=== PATIENT | female | born 1950 | race Caucasian/White ===

== ENCOUNTER → 2023-06-27 10:40 | Outpatient (REF) | payer OTHER, SELFPAY | LOC: RAD 10:40 | PROVIDERS: ATTENDING PHYSICIAN Physician Assistant Medical | DX: M25.562 Pain in left knee (principal) | CPT/HCPCS: 73564 ==

== ENCOUNTER → 2023-09-12 09:37 | Outpatient (REF) | payer OTHER, SELFPAY | LOC: RCS 09:37 | PROVIDERS: ATTENDING PHYSICIAN Internal Medicine Cardiovascular Disease; FAMILY PHYSICIAN Physician Assistant Medical | DX: I42.1 Obstructive hypertrophic cardiomyopathy (principal); I10 Essential (primary) hypertension; E78.00 Pure hypercholesterolemia, unspecified; R07.89 Other chest pain | CPT/HCPCS: 93306 ==

== ENCOUNTER → 2024-01-04 11:11 | Outpatient (REF) | payer OTHER, SELFPAY | LOC: HWWDC 11:11 | PROVIDERS: ATTENDING PHYSICIAN Physician Assistant Medical | DX: Z12.31 Encounter for screening mammogram for malignant neoplasm of breast (principal) | CPT/HCPCS: 77063; 77067 ==

== ENCOUNTER → 2024-03-18 16:08 | Outpatient (REF) | payer OTHER, SELFPAY | LOC: RAD 16:08 | PROVIDERS: ATTENDING PHYSICIAN Physician Assistant Medical | DX: M25.561 Pain in right knee (principal); R29.898 Other symptoms and signs involving the musculoskeletal system | CPT/HCPCS: 73564; 93971 ==

== ENCOUNTER → 2024-10-09 12:49 | Outpatient (REF) | payer OTHER, SELFPAY | LOC: RCS 12:49 | PROVIDERS: ATTENDING PHYSICIAN Nurse Practitioner; FAMILY PHYSICIAN Physician Assistant Medical | DX: I42.1 Obstructive hypertrophic cardiomyopathy (principal) | CPT/HCPCS: 93306 ==

== ENCOUNTER → 2024-11-11 07:55 | Outpatient (REF) | payer OTHER, SELFPAY | LOC: RCS 07:55 | PROVIDERS: ATTENDING PHYSICIAN Nurse Practitioner; FAMILY PHYSICIAN Physician Assistant Medical | DX: R07.89 Other chest pain (principal) | CPT/HCPCS: 78452; 93017; A9500; J2785 ==

== ENCOUNTER → 2024-11-18 10:19 | Outpatient (REF) | payer OTHER, SELFPAY | LOC: RCS 10:19 | PROVIDERS: ATTENDING PHYSICIAN Internal Medicine Cardiovascular Disease; FAMILY PHYSICIAN Physician Assistant Medical | DX: I42.1 Obstructive hypertrophic cardiomyopathy (principal) | CPT/HCPCS: 93308; 93321; 93325 ==

== ENCOUNTER → 2024-11-24 12:05 | Outpatient (REF) | payer OTHER, SELFPAY | LOC: RAD 12:05 | PROVIDERS: ATTENDING PHYSICIAN Dermatology; FAMILY PHYSICIAN Physician Assistant Medical | DX: Z85.820 Personal history of malignant melanoma of skin (principal) | CPT/HCPCS: 71046 ==

== ENCOUNTER → 2025-02-03 14:12 | Outpatient (REF) | payer OTHER, SELFPAY | LOC: RAD 14:12 | PROVIDERS: ATTENDING PHYSICIAN Physician Assistant Medical | DX: Z01.89 Encounter for other specified special examinations (principal); M54.6 Pain in thoracic spine; M54.50 Low back pain, unspecified | CPT/HCPCS: 72072; 72110 ==

== ENCOUNTER 2025-02-16 12:25 | Emergency (ER) | payer OTHER, SELFPAY ==
[2025-02-16 12:27] VITALS: BP 193/98
[2025-02-16 14:16] VITALS: BP 189/100
--- NOTE | 2025-02-16 14:33 | ED.GENMED ---
History of Present Illness
General
Chief Complaint: Back Pain
Time Seen by Provider: 02/16/25 14:33
History of Present Illness
History of Present Illness:
FOCUSED PAST MEDICAL HISTORY
- Cardiomyopathy, high blood pressure, anxiety
REVIEW OF OLD RECORDS
- The patient was seen here in 2020 with chest pain in the emergency department
Note:
CHIEF COMPLAINT(S)
Back pain and urinary incontinence.
HISTORY OF PRESENT ILLNESS
The patient is a 74-year-old female who presented with complaints of back pain and urinary incontinence. The back pain began approximately two weeks ago. Prior to this, the patient had no significant issues with her back other than a history of T5
and T11 compression fractures three years ago. These fractures occurred after lifting a heavy suitcase and resolved without surgical intervention. The patient reports that the current back pain started as a mild discomfort and progressed, becoming
more severe upon certain movements. She describes the pain as significant, rating it as a five out of ten at rest and potentially increasing to a nine if she moves the wrong way. The patient is capable of walking but experiences considerable
discomfort.
The previous night, the patient experienced urinary incontinence, urinating while trying to get to the bathroom. This episode prompted her PA to contact the [facility] due to concerns about possible Cauda Equina Syndrome. The patient reports
wearing pull-ups today due to continued urinary control issues.
Upon physical examination in the ER, her strength is noted to be good. The patient has been tapering off prednisone prescribed ten days ago and is currently on two tablets a day, reducing to one tablet within the next few days. Muscle relaxants have
been completed. She inquires about pain management options to address her symptoms after the current medication regimen ends.
PAST MEDICAL AND SURGICAL HISTORY
T5 and T11 compression fractures three years ago, no surgical intervention.
REVIEW OF SYSTEMS
- Gastrointestinal: Urinary incontinence began approximately the previous night.
- Musculoskeletal: Severe back pain initially rated at five out of ten, worsening to nine with certain movements. Prior history of compression fractures at T5 and T11.
PHYSICAL EXAM
General: Alert, smiling, appears fairly comfortable
Skin: Warm, dry.
Head: Normocephalic, atraumatic.
Neck: Supple, trachea midline.
Eye, ears, nose, mouth, and throat: Oral mucosa moist.
Cardiovascular: Normal peripheral perfusion, No edema.
Respiratory: Respirations are non-labored.
Gastrointestinal: Abdomen nondistended.
Back: Decreased active range of motion of the thoracolumbar spine due to pain. I offered and considered checking anal tone however the patient refuses stating that the patient will be in too much pain if she rolls onto her side
Musculoskeletal: Normal ROM, normal strength.
Neurological: Alert and oriented to person, place, time, and situation, No focal neurological deficit observed. There is good strength in an L5 and S1 distribution bilaterally
Psychiatric: Cooperative, appropriate mood & affect.
PLAN
1. Pursue MRI evaluation to rule out Cauda Equina Syndrome, if radiology permits.
2. Continue the tapering of prednisone as scheduled, with two tablets for the current and next day, then one tablet for Sunday and .
3. Discuss ongoing pain management options post-prednisone tapering.
DIFFERENTIAL DIAGNOSIS
The Differential Diagnosis includes, in no particular order and is not limited to:
1. Cauda Equina Syndrome
2. Lumbar Disc Herniation
3. Spinal Stenosis
4. Vertebral Fracture
5. Urinary Tract Infection
6. Degenerative Disc Disease
7. Sciatica
8. Nephrolithiasis
9. Lumbar Strain
10. Spinal Tumor
RADIOLOGY
- MRI L-spine
UPDATE
- I discussed case with Dr. Robles who is allowing us to get MRI of the L-spine today for evaluation of cauda equina syndrome.
- The patient is currently declining analgesia but states he may need something at home
SUMMARY OF ENCOUNTER
The patient, a 74-year-old female, presented to the emergency department with complaints of back pain and urinary incontinence. An MRI conducted showed old fractures of the thoracic spine and a new compression fracture at L1 with minimal
displacement. The patient appeared to manage basic activities such as urination without significant difficulty following initial supervision, although urinary incontinence prompted further investigations.
DISPOSITION
Discharge, provided post-void residual (PVR) is less than 200 mL.
ASSESSMENT
The patient presents with a new compression fracture at L1 and urinary incontinence, potentially indicative of complications like Cauda Equina Syndrome however MRI is not overly concerning for cauda equina syndrome.
PLAN
If PVR is less than 200 mL, discharge the patient with instructions to follow up with neurosurgery as an outpatient for further assessment and management of the new compression fracture.
MANAGEMENT OF THE PATIENTS CARE WAS DISCUSSED WITH
Dr. Johnson, who recommended checking the post-void residual to ensure proper bladder emptying and determining discharge based on these results.
PATIENT EDUCATION AND COUNSELING
The patient was advised on the importance of monitoring her symptoms and the need for follow-up care with neurosurgery as an outpatient.
FOLLOW-UP INSTRUCTIONS
The patient is to schedule a follow-up appointment with a neurosurgeon for further evaluation and management of her spinal condition.
MEDICAL DECISION MAKING
-Complexity of Data Reviewed: Chronic conditions affecting care include a history of previous compression fractures. Differential Diagnosis includes Cauda Equina Syndrome, Lumbar Disc Herniation, Spinal Stenosis, Vertebral Fracture, Urinary Tract
Infection, Degenerative Disc Disease, Sciatica, Nephrolithiasis, Lumbar Strain, and Spinal Tumor.
-Data:
Category 1: Clinical information from MRI indicating a new L1 compression fracture.
Category 3: Discussion with Dr. Johnson who recommended checking post-void residual.
DIAGNOSIS
- L1 Compression Fracture (ICD-10: S32.020A)
- History of Thoracic Compression Fractures (ICD-10: M48.54)
I discussed case with Dr. Johnson. The patient's postvoid residual was 100 mL and she has very good strength in the lower extremities is very comfortable in appearance. I have given her the contact information for Dr. Johnson to follow-up with as an
outpatient. Patient has not required any Flexeril over the last several days. We agreed to hold off on any further prescriptions.
Past History
Past History
ED Past Medical History: Cancer (Cervical CA), HTN and Other (Hypertrophic Cardiomyopathy)
ED Past Surgical History: Gynecological (total Hysterectomy)
Social History
Tobacco: Former smoker
Alcohol: Occasional
Personal:
Living: alone
Phy Exam
Physical Exam
Physical Exam:
See HPI
Course
Orders/Labs/Results
Orders:
Orders
02/16/25 14:45
MR Lumbar Without Contrast Urgent
Comment:
Reason For Exam: LBP w/ new urinary incontinence
Recent pill cam endoscopy?: No
Vital Signs
Initial and Last Documented VS:
Initial Vital Signs
Temp Pulse Resp BP Pulse Ox
37.0 C 66 18 193/98 96
02/16/25 12:27 02/16/25 12:27 02/16/25 12:27 02/16/25 12:27 02/16/25 12:27
Last Documented Vital Signs
Temp Pulse Resp BP Pulse Ox
37.0 C 61 13 128/88 97
02/16/25 12:27 02/16/25 15:15 02/16/25 15:15 02/16/25 15:00 02/16/25 15:15
*Pulse Oximetry
SaO2: 96
Oxygen Mode of Delivery: Room air
Patient hypoxic: no
*Critical Care Note
Total Time (30-74mins, 75-104mins- exclusive of procedures): Not Applicable
ED Attending Note
-
Portions of this chart may have been created with voice recognition software.� Occasional wrong word or��sound alike� substitutions may have occurred due to the inherent limitations of voice recognition software.
Discharge Plan
Departure
Patient Disposition: Home (Routine Discharge)
Date of Disposition: 02/16/25
Time of Disposition: 17:41
Patient with high blood pressure during this ER visit?: Yes
Discharge Problem:
Nontraumatic compression fracture of L1 vertebra
Referrals:
Osiel Hernandes PA-C [Family Provider, Family Practice]
Kavita Johnson MD [Active, Neurosurgery]
Activity Restrictions/Additional Instructions:
The MRI shows L1 compression fracture with 3.5 mm of retropulsion. The radiologist also noted a 6.5 cm cystic focus within the right lower quadrant which is incompletely visualized for which ultrasound is recommended as an outpatient. I briefly
notified the on-call [facility] doctor who wanted me to talk to a neurosurgeon. I am giving the contact information for a local neurosurgeon for you to follow-up with, Dr. Johnson.
MRI REPORT:
There is an acute compression fracture of the L1 vertebral body with associated moderate loss of height and 3.5 mm of retropulsion superiorly. There is associated mild canal stenosis at the L1 level.
Multilevel degenerative changes with resultant mild canal stenosis and mild bilateral neural foraminal narrowing of L4-L5.
Chronic compression fracture of the T11 vertebral body.
6.5 cm cystic focus within the right lower quadrant which is incompletely evaluated on this examination. Further evaluation with dedicated pelvic ultrasound or CT should be considered if not previously evaluated.
Interventions
Interventions:
*Risk Screen - Suicide Last Done: 02/16/25 14:21
*General Assessment Last Done: 02/16/25 12:27
*Neglect/Abuse Screening Last Done: 02/16/25 14:21
*ED- Fall Risk Assessment Last Done: 02/16/25 14:21
*ED COVID-19 Vaccine History Last Done: 02/16/25 14:21
*ED Influenza Vaccine History Last Done: 02/16/25 14:21
ED-Musculoskeletal Assessment Last Done: 02/16/25 14:21
Discharge Date and Time
Print Language: NAURUAN
[2025-02-16 15:00] VITALS: BP 128/88
== END 2025-02-16 18:11 | disposition home or self-care (01) ==
LOC: EMR 12:25
PROVIDERS: EMERGENCY PHYSICIAN Emergency Medicine; FAMILY PHYSICIAN Physician Assistant Medical
DX: M48.56XA Collapsed vertebra, not elsewhere classified, lumbar region, initial encounter for fracture (principal); I10 Essential (primary) hypertension; I42.2 Other hypertrophic cardiomyopathy; R32 Unspecified urinary incontinence; Z85.41 Personal history of malignant neoplasm of cervix uteri; Z87.891 Personal history of nicotine dependence; Z90.710 Acquired absence of both cervix and uterus; Z87.311 Personal history of (healed) other pathological fracture
CPT/HCPCS: 99284; 72148